=== PATIENT | male | born 1955 | race Caucasian/White ===

== ENCOUNTER 2018-08-06 17:14 | Emergency (ER) | payer MEDICAID, OTHER ==
[~2018-08-06] VITALS: Ht 167.6 cm; Wt 82.0 kg
[2018-08-06] MEDS ORDERED: SODIUM CHLORIDE 0.9% 1,000 ML IV ONE (18:54)
[2018-08-06 19:22] LABS: CHLORIDE 98 mEq/L (98-107)
[2018-08-06 19:25] LABS: BASOPHILS % 0.4 % (0.0-2.0); EOSINOPHILS % 0.7 % (0.0-5.0); ETHANOL BLOOD < 10 mg/dL; HEMATOCRIT. 49.5 % (42.0-52.0); HEMOGLOBIN. 16.9 g/dL (14.0-18.0); LYMPHOCYTES % 9.7 % (20.0-50.0); MEAN CORPUSCULAR HEMOGLOBIN 28.2 pg (28.0-32.0); MEAN CORPUSCULAR VOLUME 82.6 fL (80.0-94.0); MEAN PLATELET VOLUME 10.2 fl (7.4-10.4); NEUTROPHILS % 81.2 % (40.0-76.0); PLATELET 221 x1000/uL (130-400); RED BLOOD CELL COUNT 5.99 mill/uL (4.7-6.1); RED CELL DISTRIBUTION WIDTH 13.9 % (11.6-14.6)
[2018-08-06] MEDS ORDERED: POTASSIUM CHLORIDE 20MEQ TABLET SR PO ONE (20:30)
[2018-08-06 21:21] LABS: T4 FREE 1.63 ng/dL (0.76-1.46)
[2018-08-06 23:03] VITALS: BP 155/86
== END 2018-08-06 23:04 | disposition home or self-care (01) ==
LOC: ER 17:14
DX: R00.2 Palpitations (principal); R51 Headache; E86.0 Dehydration; E87.6 Hypokalemia; I10 Essential (primary) hypertension
CPT/HCPCS: 36415; 70450; 71045; 80053; 80320; 83880; 84439; 84443; 84481; 84484; 85025; 93005; 96360; 96361; 99284; J7030; G0480